=== PATIENT | female | born 1960 | race African-American/Black ===

== ENCOUNTER 2020-08-21 09:32 | Outpatient (CLI) | payer OTHER | END 2020-08-21 09:33 | disposition home or self-care (01) | LOC: BICRAD 09:32 | PROVIDERS: ATTEND Family Medicine | DX: M79.642 Pain in left hand (principal); M19.042 Primary osteoarthritis, left hand ==

== ENCOUNTER 2020-12-04 09:16 | Outpatient (CLI) | payer OTHER | END 2020-12-04 09:17 | disposition home or self-care (01) | LOC: BICMAMMO 09:16 | PROVIDERS: ATTEND Nurse Practitioner Family | DX: Z12.31 Encounter for screening mammogram for malignant neoplasm of breast (principal) | CPT/HCPCS: 77063; 77067 ==

== ENCOUNTER 2022-01-08 08:58 | Outpatient (CLI) | payer OTHER | END 2022-01-08 08:59 | disposition home or self-care (01) | LOC: BICMAMMO 08:58 | PROVIDERS: ATTEND Family Medicine | DX: Z12.31 Encounter for screening mammogram for malignant neoplasm of breast (principal) | CPT/HCPCS: 77063; 77067 ==

== ENCOUNTER 2022-03-19 18:17 | Emergency (ER) | payer OTHER ==
[2022-03-19] MEDS ORDERED: Lorazepam 1 MG TAB ONE (18:58)
[2022-03-19] MEDS ORDERED: Amlodipine 5 mg/Benazepril 10 mg CAP PO SCH (19:00)
== END 2022-03-19 19:37 | disposition home or self-care (01) ==
LOC: ERS 18:17
DX: I10 Essential (primary) hypertension (principal); Z79.899 Other long term (current) drug therapy
CPT/HCPCS: 93005

== ENCOUNTER 2024-02-18 12:33 | Outpatient (CLI) | payer MEDICARE | END 2024-02-18 12:34 | disposition home or self-care (01) | LOC: CT 12:33 | PROVIDERS: ATTEND Orthopaedic Surgery | DX: M17.11 Unilateral primary osteoarthritis, right knee (principal) ==

== ENCOUNTER 2024-02-29 05:30 | Observation (INO) | payer MEDICARE, OTHER ==
[2024-02-18 09:36] VITALS: BMI 40.8
[2024-02-29] MEDS ORDERED: Tranexamic Acid 1,000 MG/10 ML VIAL ONE (06:21)
[2024-02-29] MEDS ORDERED: Sodium Chloride 0.9% 100 ML ONE (06:21)
[2024-02-29] MEDS ORDERED: Vancomycin (BATCH) 1.5 GM/300 ML BAG ONE (06:23)
[2024-02-29] MEDS ORDERED: Bupivacaine 0.25% HCL 30 ML VIAL ONE (06:24)
[2024-02-29] MEDS ORDERED: EPINEPHrine 1 MG/ML VIAL ONE ×2 (06:24→08:16)
[2024-02-29] MEDS ORDERED: fentaNYL 50 mcg/mL 1 mL Vial ONE (06:39)
[2024-02-29] MEDS ORDERED: Midazolam HCl 2 mg/2 ml Vial ONE (06:40)
[2024-02-29] MEDS ORDERED: CEFAZOLIN 2 GM VIAL ONE (06:55)
[2024-02-29] MEDS ORDERED: fentaNYL PF 100 MCG/2 ML SYRINGE ONE ×3 (07:13→10:06)
[2024-02-29] MEDS ORDERED: Lidocaine 2% PF 5 ML VIAL ONE (07:13)
[2024-02-29] MEDS ORDERED: PROPOFOL 20 ML ONE ×2 (07:14→07:24)
[2024-02-29] MEDS ORDERED: PHENYLEPHRINE-NS 100 MCG/ML 10 ML SYRINGE ONE (07:34)
[2024-02-29] MEDS ORDERED: Ondansetron PF 4 MG/2 ML Vial ONE (07:34)
[2024-02-29] MEDS ORDERED: Dexamethasone 20 MG/5 ML VIAL ONE (07:34)
[2024-02-29] MEDS ORDERED: Lidocaine 1% (PF) 30 ML VIAL ONE (08:16)
[2024-02-29] MEDS ORDERED: Ropivacaine 0.5% HCl/PF (150 MG/30 ML VIAL) ONE (08:16)
[2024-02-29] MEDS ORDERED: Zolpidem Tartrate 5 MG TAB PO PRN ×2 (08:30→10:01)
[2024-02-29] MEDS ORDERED: traMADol HCl 50 MG TAB PO PRN ×2 (08:30)
[2024-02-29] MEDS ORDERED: HYDROcodone/Acetaminophen 10/325 mg Tablet PO PRN (08:30)
[2024-02-29] MEDS ORDERED: Ropivacaine 0.2% 550 ML 550 ML NERVE BLCK SCH (08:30)
[2024-02-29] MEDS ORDERED: Promethazine HCl 25 MG/ML VIAL IM PRN ×3 (08:30→10:01)
[2024-02-29] MEDS ORDERED: Ondansetron PF 4 MG/2 ML Vial IVP PRN ×2 (08:30→10:01)
[2024-02-29] MEDS ORDERED: Ketorolac Tromethamine 30 MG (1 mL) VIAL ONE ×2 (08:50)
[2024-02-29] MEDS ORDERED: Ondansetron HCl/PF 4 MG/2 ML Vial IVP PRN (09:56)
[2024-02-29] MEDS ORDERED: Acetaminophen 325 MG TAB PO PRN (10:01)
[2024-02-29] MEDS ORDERED: diphenhydrAMINE 25 MG CAP PO PRN (10:01)
[2024-02-29] MEDS ORDERED: Milk Of Magnesia 30 ML UDCUP PO PRN (10:39)
[2024-02-29] MEDS: Sodium Chloride 0.9% 1,000 ML IV SCH (14:03)
[2024-02-29] MEDS: Aspirin 81 mg Enteric Coated Tablet PO SCH ×2 (14:03→20:50)
[2024-02-29] MEDS: Ketorolac Tromethamine 30 MG (1 mL) VIAL IVP SCH (14:04)
[2024-02-29] MEDS: CEFAZOLIN 2 GM in Sodium Chloride 0.9% 100 ML IVPB SCH (15:10)
[2024-02-29] MEDS: fentaNYL 50 mcg/mL 1 mL Vial SLOW IVP PRN (15:36)
[2024-03-01 06:40] LABS: Hematocrit 28.3 % (36.0-47.0); Hemoglobin 9.6 g/dL (12.0-16.0); Mean Corpuscular HGB CONC 33.9 g/dL (32.0-36.0); Mean Corpuscular Hemoglobin 31.9 pg (27.0-31.0); Mean Platelet Volume 9.5 fL (7.4-10.4); Platelet Count 228 10x3/uL (130-400); RBC Distribution Width 13.2 % (11.5-14.5); Red Blood Cell (RBC) Count 3.01 mill/uL (4.20-5.40)
[2024-03-01] MEDS: Multivitamin W/ Minerals 1 TAB PO SCH (09:01)
[2024-03-01] MEDS: Ferrous Gluconate 324 MG TAB PO SCH (09:01)
[2024-03-01] MEDS: Cholecalciferol 1,000 UNITS (25 MCG) TAB PO SCH (09:01)
[2024-03-01] MEDS: Pantoprazole DR 40 MG TAB PO SCH (09:03)
[2024-03-01] MEDS: Amlodipine 10 MG TAB PO SCH (09:03)
[2024-03-01] MEDS: Hydrochlorothiazide 25 MG TAB PO SCH (09:05)
[2024-03-01] MEDS: Senokot S 8.6-50 MG TAB PO SCH (09:05)
[2024-03-01] MEDS: HYDROcodone/Acetaminophen 10/325 mg Tablet PO PRN (13:24)
[2024-03-02 05:09] LABS: Hematocrit 27.2 % (36.0-47.0); Hemoglobin 9.2 g/dL (12.0-16.0); Mean Corpuscular HGB CONC 33.8 g/dL (32.0-36.0); Mean Corpuscular Hemoglobin 31.7 pg (27.0-31.0); Mean Corpuscular Volume 93.8 fL (78.0-98.0); Mean Platelet Volume 9.9 fL (7.4-10.4); Platelet Count 193 10x3/uL (130-400); RBC Distribution Width 13.4 % (11.5-14.5)
[2024-03-02 09:13] VITALS: BP 121/75; TEMP 98.5
[2024-03-02] MEDS: FLU (Fluad Triv) TS24-25 (65UP)/MF59C/PF 45 MCG/0.5 ML Syringe IM ONE (09:42)
== END 2024-03-02 12:42 | disposition home or self-care (01) ==
LOC: SDC 05:30 → SURG B 12:12 → SDC 15:41
PROVIDERS: ADMIT Orthopaedic Surgery; ATTEND Orthopaedic Surgery
PROC: 0SRC0JZ Replacement of Right Knee Joint with Synthetic Substitute, Open Approach (ICD-10-PCS; principal; 2024-02-29)
PROC: 0LQQ0ZZ Repair Right Knee Tendon, Open Approach (ICD-10-PCS; 2024-02-29)
PROC: 3E0T3BZ Introduction of Anesthetic Agent into Peripheral Nerves and Plexi, Percutaneous Approach (ICD-10-PCS; 2024-02-29)
DX: M17.11 Unilateral primary osteoarthritis, right knee (principal); I10 Essential (primary) hypertension; E11.9 Type 2 diabetes mellitus without complications; K21.9 Gastro-esophageal reflux disease without esophagitis; Z88.8 Allergy status to other drugs, medicaments and biological substances
CPT/HCPCS: 0055T; 27380; 27447; 64448; 36415; 36416; 85027; A4306; C1713; C1776; C1889; J0171; J0665; J1100; J1885; J2250; J2405; J2704; J2795; J3010; J3370; J7030